=== PATIENT | male | born 1975 | race Caucasian/White ===

== ENCOUNTER 2018-05-26 20:11 | Emergency (ER) | payer SELFPAY ==
[~2018-05-26] VITALS: Ht 175.3 cm; Wt 75.3 kg
[~2018-05-26 20:11] MED LIST: BENADRYL25 MG ORAL; PREDNISONE20 MG ORAL
[2018-05-26] MEDS ORDERED: AZITHROMYC200 MG/5 M ORAL (20:33)
[2018-05-26] MEDS ORDERED: odefsey (20:33)
[2018-05-26] MEDS ORDERED: MEDROL DOSEPAK4 MG ORAL (20:33)
--- NOTE | 2018-05-26 20:40 | NUR ---
ED Nurse Note: Received report. Pt from home, AAOx4, ambulatory, c/o asthma exacerbation. Pt stated the wheezing and coughing started Friday05/24/18. Will continue to monitor and carry out ER MD orders.
[2018-05-26] MEDS ORDERED: Albuterol/Ipratropium 3ml neb HHN ONE (20:45)
[2018-05-26 21:00] VITALS: BP 133/87
[2018-05-26] MEDS ORDERED: Naproxen 500mg tab ORAL ONE (21:30)
--- NOTE | 2018-05-26 21:43 | Emergency Room Report ---
History of Present Illness General Chief Complaint: Asthma Present Illness HPI Patient 42-year-old male presented after increased cough and congestion. Patient recently been seen in urgent care. He was given prescription for azithromycin as well as steroid inhaler and Medrol Dosepak. Patient had been tolerating oral fluids. He reported having some increased fever after discharge. He had not been having any productive cough. He reports having some mild chest tightness. He had previous history of asthma and states this felt like sometimes when he had asthma attacks in the past. Allergies: Coded Allergies: HOUSE DUST (Unverified Allergy, Unknown, 04/16/14) Patient History Past Medical History: see triage record Reviewed Nursing Documentation: PMH: Agreed; PSxH: Agreed Nursing Documentation-PMH Hx Asthma: Yes Review of Systems All Other Systems: negative except mentioned in HPI Physical Exam Vital Signs Date Time Temp Pulse Resp B/P (MAP) Pulse Ox O2 Delivery O2 Flow Rate FiO2 05/26/18 20:25 101.7 115 16 132/80 93 Room Air 05/26/18 20:55 21 General Appearance: well appearing, no apparent distress, alert, GCS 15, non- toxic Head: normocephalic, atraumatic ENT: hearing grossly normal, normal voice Neck: full range of motion, supple Respiratory: no respiratory distress, speaking full sentences, wheezing Cardiovascular #1: normal inspection, tachycardia Gastrointestinal: normal inspection Musculoskeletal: normal inspection, no calf tenderness Neurologic: normal inspection, alert, oriented x3, responsive, normal gait Psychiatric: mood/affect normal Skin: no rash Medical Decision Making Diagnostic Impression: Primary Impression: Asthma ER Course Patient is given nebulized albuterol with improvement. Patient was given steroids. Repeat lung exam showed improved breath sounds as well as improved air movement. Patient was noted to have negative study for influenza. Patient was given breathing treatment as well as oral prednisone. He was given Naprosyn for fever. Patient was noted to have improvement in his symptoms. Patient was given prescription for further medications for symptomatic treatment was advised he is previously prescribed medications.Chest x-ray 1 view interpreted by me showed normal cardiac size without evident infiltrate. Patient was noted to have some hyperinflation. He was advised to return if he felt worse. Last Vital Signs Date Time Temp Pulse Resp B/P (MAP) Pulse Ox O2 Delivery O2 Flow Rate FiO2 05/26/18 21:05 102 14 100 Room Air 21 05/26/18 21:00 98.0 133/87 Status: improved Disposition: HOME, SELF-CARE Condition: Stable Scripts Guaifenesin* (ADULT WAL-TUSSIN*) 100 Mg/5 Ml Liquid 5 ML ORAL Q4H, #120 ML Prov: Farshad Haskins MD 05/26/18 Naproxen* (NAPROSYN*) 250 Mg Tablet 250 MG ORAL TWICE A DAY for fever, #60 TAB 0 Refills Prov: Farshad Haskins MD 05/26/18 Referrals: NOT CHOSEN [facility]/,REFERRING (PCP) Farshad Haskins MD May 26, 2018 21:43
--- NOTE | 2018-05-26 22:03 | NUR ---
ED Nurse Note: Pt's A&B Influenza results came back negative. Pt stable. No distress noted.
[2018-05-26] MEDS ORDERED: NAPROXEN250 MG ORAL (22:06)
[2018-05-26] MEDS ORDERED: ADULT WAL-100 MG/5 M ORAL (22:14)
[2018-05-26 22:33] VITALS: BP 126/82
--- NOTE | 2018-05-27 10:37 | Diagnostic Imaging Report ---
Indication: Shortness of breath Technique: One view of the chest Comparison: 10/04/2010 Findings: Lungs and pleural spaces are clear. Heart size is normal. The aorta is elongated and tortuous. Impression: No acute process
== END 2018-05-26 22:33 | disposition home or self-care (01) ==
LOC: EMR 20:44
DX: J45.909 Unspecified asthma, uncomplicated (principal)
CPT/HCPCS: 71045; 86710; 94640; 99284; J7512; J7620